=== PATIENT | male | born 1955 | race Caucasian/White ===

== ENCOUNTER 2017-06-10 08:31 | Outpatient (CLI) | END 2017-06-10 08:32 | LOC: AMBL 08:31 | PROVIDERS: ATTEND Family Medicine | DX: R31.9 Hematuria, unspecified (principal); R53.1 Weakness; R00.1 Bradycardia, unspecified; I95.9 Hypotension, unspecified; R73.9 Hyperglycemia, unspecified; N50.89 Other specified disorders of the male genital organs; R61 Generalized hyperhidrosis; M19.90 Unspecified osteoarthritis, unspecified site; Z85.51 Personal history of malignant neoplasm of bladder ==